=== PATIENT | female | born 1990 | race Caucasian/White ===

== ENCOUNTER 2017-10-27 10:31 | Day surgery (SDC) | payer BC ==
[2017-10-27 11:20] VITALS: BP 128/78; TEMP 98.8; BMI 29.0
[2017-10-27 11:53] LABS: Amnisure Test No Membranes Rupture (No Rupture)
[2017-10-27 11:54] LABS: Amnisure Internal Control QC ACCEPTABLE (ACCEPTABLE)
--- NOTE | 2017-10-27 13:05 | SS ---
DATE OF EVALUATION: 10/27/2017 REGULAR PHYSICIAN: Etienne Salcedo M.D. EVALUATING PHYSICIAN: Vishnu Fraga M.D. CHIEF COMPLAINT: Suspected ruptured membranes since 3:00 a.m. this morning, contractions. HISTORY OF PRESENT ILLNESS: Ms. Ravi Burt is a 26-year-old white G1, P0 with an estimated date of c onfinement of 10/26/2017 who presents complaining of a gush of fluid from the vagina which she noted at 3:00 a.m. Since that time, she states that she has been ruddy every 2-5 minutes. Her [facility] care has been with Dr. Salcedo, it has been uncomplicated. She is group B Strep negative. PAST MEDICAL HISTORY: None. PAST SURGICAL HISTORY: Broken arms x2. MEDICATIONS: vitamins. ALLERGIES: No known allergies. SOCIAL HISTORY: She denies tobacco, alcohol, or drug use. FAMILY HISTORY: Unremarkable. PHYSICAL EXAMINATION: VITAL SIGNS: Stable and she is afebrile. GENERAL: She is well-appearing. She is not uncomfortable. ABDOMEN: Soft, nontender and gravid. PELVIC: Via the labor nurse shows the cervix to be 2 cm dilated, 95% effaced with the vertex at the -2 position. Sterile speculum exam by wi shows no pooling of fluid in the vagina with coughing and s training. AmniSure testing returns negative. heart rate tracing is reassuring with good beat to beat variability. Irregular contractions are seen. ASSESSMENT: 1. 40 and 1/7 week intrauterine . 2. No evidence of rupture of membranes at this time. 3. Possible early labor. PLAN: The patient desires low intervention at this time and will be allowed to go home, rest and obs erve for contractions. She is told to return if she notices vaginal bleeding, more leakage of fluid or more regular contractions. She and her voiced understanding of these discharge instructio ns.
== END 2017-10-27 12:25 | disposition home or self-care (01) ==
LOC: L&D/OP 10:31
PROVIDERS: ATTEND Obstetrics & Gynecology
DX: O47.1 False labor at or after 37 completed weeks of gestation (principal); Z3A.40 40 weeks gestation of pregnancy
CPT/HCPCS: 84112; 99282

== ENCOUNTER 2017-10-27 20:37 | Inpatient (IN) | payer BC ==
[2017-10-27 21:00] VITALS: BMI 29.0
[2017-10-27] MEDS ORDERED: Butorphanol Tartrate 1 MG/ML VIAL SLOW IVP PRN (21:26)
[2017-10-27] MEDS ORDERED: Ibuprofen 800 MG TAB PO PRN (21:26)
[2017-10-27] MEDS ORDERED: Ondansetron HCl/PF 4 MG/2 ML Vial IVP PRN (21:26)
[2017-10-27] MEDS ORDERED: Promethazine HCl 25 MG/ML VIAL IM PRN (21:26)
[2017-10-27] MEDS ORDERED: NS / Oxytocin 40 units/1000ml 1,000 ML IV PRN (21:26)
[2017-10-27] MEDS ORDERED: Methylergonovine 0.2 MG/ML VIAL IM PRN (21:26)
[2017-10-27] MEDS ORDERED: Carboprost 250 MCG/ML AMP IM PRN (21:26)
[2017-10-27] MEDS ORDERED: Diphenoxylate HCl/Atropine Tablet PO PRN ×2 (21:26)
[2017-10-27] MEDS ORDERED: Acetaminophen 500 MG TAB PO PRN (21:26)
[2017-10-27] MEDS ORDERED: HYDROcodone/Acetaminophen 5/325 mg Tablet PO PRN ×2 (21:26)
[2017-10-27] MEDS ORDERED: Lidocaine 1% (PF) 30 ML VIAL SC PRN (21:26)
[2017-10-27] MEDS ORDERED: Misoprostol 200 MCG TAB PR PRN (21:26)
--- NOTE | 2017-10-27 21:30 | PDOC.LDHP ---
Labor and Delivery H&P Chief complaint: contractions HPI: 26 y/o G1 at 40w1d, patient of Dr. Salcedo, presents with continued contractions. Was seen earlier today and noted to be 2/50/-2 with a negative SROM exam. Denies VB or decreased FM. Would like low intervention. ROS neg for HEENT, cv, pulm, gi, gu, neuro, psych, skin, musculoskeletal, or constitutional symptoms other than mentioned above. OB History Details: First Current complications: none Past Medical History: None Current medications: pre- vitamins Previous surgical history: other (broken arms x 2) Allergies/Adverse Reactions: Allergies Allergy/AdvReac Type Severity Reaction Status Date / Time No Known Allergies Allergy Verified 10/27/17 20:57 Social history: none - Physical Exam Vital signs reviewed and normal: yes General: NAD, breathing through contractions Lungs: nonlabored breathing Abdomen: gravid Extremeties: no edema FHT: category 1 (135, mod variability, + accels, no decels) [place] contractions every: 2-4 mins - Vaginal Exam cm dilated: 4 Effacement: 75% Station: -2 - OB Labs Blood type: A RH: positive Antibody Screen: negative HIV: negative RPR: negative HEPSAg: negative 1 hour GCT: negative GBS: negative Rubella: immune - Assessment L&D Assessment: term patient in labor - Plan Plan: admit to L&D, labor augmentation if indicated, informed consent obtained, anesthesia consult for pain management
[2017-10-27 22:40] LABS: Hemoglobin 11.5 g/dL (12.0-16.0); Mean Corpuscular HGB CONC 34.6 g/dL (32.0-36.0); Mean Corpuscular Hemoglobin 31.3 pg (27.0-31.0); Mean Corpuscular Volume 90.5 fL (78.0-98.0); Mean Platelet Volume 8.4 fL (7.4-10.4); Platelet Count 220 thou/uL (130-400); RBC Distribution Width 12.3 % (11.5-14.5); Red Blood Cell (RBC) Count 3.69 mill/uL (4.20-5.40)
[2017-10-27 23:16] LABS: Syphilis Antibody Nonreactive (Nonreactive); Syphilis Antibody Index 0.02 S/CO (<1.00 Non-Reactive)
[2017-10-27 23:22] LABS: Hep B Surf Ag Non-Reactive S/CO (NonReactive)
[2017-10-28] MEDS ORDERED: Bupivacaine 0.25% HCL 30 ML VIAL ONE (10:00)
[2017-10-28] MEDS ORDERED: Bupivacaine HCl 0.5%/Epinephrine 1:200,000/PF 30 ml Vial ONE (10:00)
[2017-10-28] MEDS ORDERED: Ketorolac Tromethamine 30 MG/ML VIAL ONE ×2 (15:06→22:30)
[2017-10-28] MEDS ORDERED: Dexamethasone 20 MG/5 ML VIAL ONE (15:06)
[2017-10-28] MEDS ORDERED: Ondansetron HCl/PF 4 MG/2 ML Vial ONE ×2 (15:06→22:30)
[2017-10-28] MEDS ORDERED: DISCONTINUE ALL PREVIOUS NARCOTICS FS SCH (17:15)
[2017-10-28] MEDS ORDERED: Bupivacaine 0.5% 20 ML, fentaNYL Citrate/PF 400 MCG in Sodium Chloride 0.9% 72 ML EPIDURAL SCH (17:15)
[2017-10-28] MEDS ORDERED: Butorphanol Tartrate 1 MG/ML VIAL ONE (17:28)
[2017-10-28] MEDS: Lactated Ringer's 1,000 ML IV SCH ×3 (17:50→21:21)
[2017-10-28] MEDS ORDERED: ePHEDrine/0.9% NaCl/PF SYRINGE 50 mg/10 ml SLOW IVP PRN (18:27)
[2017-10-28] MEDS ORDERED: Naloxone HCl 0.4 mg/ml Vial IVP PRN ×4 (18:27→22:21)
[2017-10-28] MEDS ORDERED: Promethazine HCl 25 MG/ML VIAL IM PRN ×2 (18:27→22:21)
[2017-10-28] MEDS ORDERED: Ondansetron HCl/PF 4 MG/2 ML Vial IVP PRN ×3 (18:27→22:21)
[2017-10-28] MEDS ORDERED: Lactated Ringer's 500 ML IV PRN (18:27)
[2017-10-28] MEDS ORDERED: Acetaminophen 325 MG TAB PO PRN (18:27)
[2017-10-28] MEDS ORDERED: diphenhydrAMINE 50 MG/ML VIAL IVP PRN ×2 (18:27→22:21)
[2017-10-28] MEDS ORDERED: Eucerin (Mineral Oil/Petrolatum,White) 30 gm Jar TOP PRN (18:27)
[2017-10-28] MEDS ORDERED: fentaNYL Citrate/PF 400 MCG, Bupivacaine 0.5% 20 ML in Sodium Chloride 0.9% 72 ML EPIDURAL SCH (18:30)
[2017-10-28] MEDS ORDERED: Communication Order-Pharmacy FS SCH ×2 (18:30→22:30)
[2017-10-28] MEDS ORDERED: CEFAZOLIN/Water 2 GM/20 ML SYRINGE ONE (20:42)
--- NOTE | 2017-10-28 20:43 | PDOC.EVN ---
Event Note - Event Note Event Note: Epidural placed 2 hours ago. Pt. comfortable. SVE remains 9 cm, edematous cervix anteriorly, vtx. with caput. FHTs are stable, no decels. UCs q 2-3 min. A/P; Active phase arrest. D/w Dr. Salcedo. Will proceed with 1* C/S.
[2017-10-28] MEDS ORDERED: Bicitra 30 ML UDCUP PO SCH (20:45)
[2017-10-28] MEDS ORDERED: CEFAZOLIN/Water 2 GM/20 ML SYRINGE SLOW IVP SCH (20:45)
[2017-10-28] MEDS ORDERED: Azithromycin 500 MG in Sodium Chloride 0.9% 250 ML 250 ML IVPB SCH (21:15)
--- NOTE | 2017-10-28 21:26 | PDOC.LDPN ---
Labor & Delivery Progress Note - Subjective Subjective: comfortable - Objective Vital signs reviewed and normal: yes General: NAD, resting Uterine fundus: non tender Dilation: 9 Effacement: 90% Station: 1+ FHT: category 1 [place] contractions every: 3-4 - Assessment (1) Failure of cervical dilation Code(s): O62.0 - PRIMARY INADEQUATE CONTRACTIONS Current Visit: Yes Status: Acute Plan: other (CS called @`2034, Dr mitchell notified of need for primary unscheduled cs for failure to progress at [address] Mitchell on unit at 2114, awaiting other or coming down for dry starch supervisor staffing for case currently at 2124. Category 1 fhr tracing. )
[2017-10-28] MEDS ORDERED: EPINEPHrine 1 MG/ML AMP ONE (21:50)
[2017-10-28] MEDS ORDERED: ePHEDrine/0.9% NaCl/PF SYRINGE 50 mg/10 ml ONE (21:50)
[2017-10-28] MEDS ORDERED: Oxytocin 10 UNITS/ML VIAL ONE (21:50)
[2017-10-28] MEDS ORDERED: Morphine PF 1 MG/ML SYR ONE (22:12)
[2017-10-28] MEDS ORDERED: CEFAZOLIN 1 GM in Sodium Chloride 0.9% 100 ML IVPB SCH (22:15)
[2017-10-28] MEDS ORDERED: Hydrocerin (Eucerin) Cream 120 gm Jar TOP PRN (22:21)
[2017-10-28] MEDS ORDERED: Meperidine HCl/PF 25 MG/ML VIAL SLOW IVP PRN (22:21)
[2017-10-28] MEDS ORDERED: HYDROmorphone 2 MG/ML VIAL SLOW IVP PRN (22:21)
[2017-10-28] MEDS ORDERED: Ketorolac Tromethamine 30 MG/ML VIAL IVP PRN (22:21)
[2017-10-28] MEDS ORDERED: Promethazine HCl 25 MG SUPP PR PRN (22:21)
[2017-10-28] MEDS ORDERED: Naloxone HCl 0.4 mg/ml Vial IV PRN (22:21)
[2017-10-28] MEDS ORDERED: Dexamethasone 4 mg/ml Vial ONE (22:30)
[2017-10-28] MEDS ORDERED: Ketorolac Tromethamine 30 MG/ML VIAL IVP SCH (22:30)
--- NOTE | 2017-10-29 01:12 | PDOC.EVN ---
Event Note - Event Note Event Note: POD#1 Resting comfortably. No c/o. VSS AF. Dressing dry. Floey with clear urine. Plan; Routine post op care.
--- NOTE | 2017-10-29 01:29 | OP ---
DATE OF PROCEDURE: 10/28/2017 PREOPERATIVE DIAGNOSES: Failure to progress at 9 cm post-term, spontaneous onset of labor. POSTOPERATIVE DIAGNOSES: Failure to progress at 9 cm post-term, spontaneous onset of labor. PROCEDURE: Primary low-transverse section without extension. SURGEON: Eliud Salcedo MD for [facility]. SENIOR BEHAVIORAL SCIENTIST: Vishnu Fraga MD for [facility]. ANESTHESIOLOGIST: Tan Mitchell MD ANESTHESIA: Epidural. ESTIMATED BLOOD LOSS: QBL pending, but blood loss did not seem excessive for section. MEDICATIONS: Ancef 3 grams and Zithromax 500 preoperatively. DEEP VENOUS THROMBOSIS PROPHYLAXIS: SCDs. DRAINS: David to gravity. OPERATIVE FINDINGS: 1. Vigorous female , left occiput transverse presentation with thin meconium fluid. No nuchal cord. To nursery. 8 and 9 Apgars. Weight pending. 2. Normal-appearing uterus, tubes, and ovaries bilaterally. 3. Hemostasis. Clear urine. Counts correct at the end of procedure. DISPOSITION: To recovery room in good condition. DESCRIPTION OF PROCEDURE: After obtaining proper consent, the patient was taken to the operating rosa m, where epidural had been dosed to appropriate level. The patient was prepped and draped in the usu al manner with SCDs and lower extremity warmer on. Pfannenstiel incision was made and carried down t o the fascia. The midline was incised sharply superior and laterally with curved Esquivel scissors. Rec tus was dissected off sharply superiorly and inferiorly, divided in the midline. Peritoneum entered bluntly, taking care to avoid trauma to underlying viscera. Nathan O retractor placed inside. Vesic outerine peritoneal reflection noted as well as the lower uterine segment. A low-transverse hysterot milly was made at this level and extended superior and laterally. 's head was elevated through t he hysterotomy. The rest of the delivered. Cord clamped, cut, and handed off to [facility] in attendance. Usual cord blood samples were obtained without difficulty. Placenta delivered manu ally. Uterus left in situ, noted to be without extension, closed using a running locking #1 Monocryl suture x2. Gutters were irrigated out bilaterally and re-inspection of the hysterotomy revealed to be dry. The Nathan O retractor was removed. Counts were correct. Rectus was inspected and noted to be dry. Fascia was reapproximated using a running continuous 0 PDS suture. Subcutaneous tissue irr igated and rendered hemostatic with Bovie cautery, reapproximated with 2-0 plain gut and skin malia . The patient was taken to recovery room in good condition.
[2017-10-29] MEDS ORDERED: Meperidine HCl/PF 25 MG/ML VIAL IM PRN ×2 (01:35→13:52)
[2017-10-29] MEDS ORDERED: Zolpidem Tartrate 5 MG TAB PO PRN ×2 (01:35→13:52)
[2017-10-29] MEDS ORDERED: Lanolin Ointment 7 GM TUBE TOP PRN (01:35)
[2017-10-29] MEDS ORDERED: Ondansetron HCl/PF 4 MG/2 ML Vial IVP PRN ×2 (01:35→02:07)
[2017-10-29] MEDS ORDERED: diphenhydrAMINE 25 MG CAP PO PRN (01:35)
[2017-10-29] MEDS ORDERED: HYDROcodone/Acetaminophen 5/325 mg Tablet PO PRN ×2 (01:35)
[2017-10-29] MEDS ORDERED: Acetaminophen 325 MG TAB PO PRN (01:35)
[2017-10-29] MEDS ORDERED: Promethazine HCl 25 MG/ML VIAL IM PRN ×2 (01:35→02:07)
[2017-10-29] MEDS ORDERED: Lactated Ringer's 1,000 ML IV SCH (01:45)
[2017-10-29] MEDS ORDERED: NS / Oxytocin 40 units/1000ml 1,000 ML IV SCH (01:45)
[2017-10-29] MEDS ORDERED: Measles/Mumps/Rubella 10 MCG/0.5 ML VIAL SC ONE (02:00)
[2017-10-29] MEDS ORDERED: Adacel (T-DAP) 0.5 ML VIAL IM ONE (02:00)
[2017-10-29] MEDS ORDERED: Promethazine HCl 25 MG SUPP PR PRN (02:07)
[2017-10-29] MEDS ORDERED: Naloxone HCl 0.4 mg/ml Vial IV PRN ×3 (02:07)
[2017-10-29] MEDS ORDERED: NO PO,IM,IV OR SC NARCOTICS FOR 12HR EXCEPT BY ANESTHESIA PO SCH (02:07)
[2017-10-29] MEDS ORDERED: Ketorolac Tromethamine 30 MG/ML VIAL IVP PRN (02:07)
[2017-10-29] MEDS ORDERED: diphenhydrAMINE 50 MG/ML VIAL IVP PRN (02:07)
[2017-10-29] MEDS ORDERED: Hydrocerin (Eucerin) Cream 120 gm Jar TOP PRN (02:07)
[2017-10-29] MEDS: Lactated Ringer's 1,000 ML IV SCH (03:34)
[2017-10-29 05:37] LABS: Hemoglobin 9.9 g/dL (12.0-16.0); Mean Corpuscular HGB CONC 34.1 g/dL (32.0-36.0); Mean Corpuscular Hemoglobin 31.5 pg (27.0-31.0); Mean Corpuscular Volume 92.6 fL (78.0-98.0); Mean Platelet Volume 8.8 fL (7.4-10.4); Platelet Count 187 thou/uL (130-400); RBC Distribution Width 12.7 % (11.5-14.5); Red Blood Cell (RBC) Count 3.13 mill/uL (4.20-5.40); White Blood Cell (WBC) Count 15.1 thou/uL (4.8-10.8)
[2017-10-29] MEDS ORDERED: Ibuprofen 800 MG TAB PO SCH (06:00)
[2017-10-29] MEDS: Prenatal Vitamin 1 TAB PO SCH (09:39)
[2017-10-29] MEDS: Docusate Calcium (SURFAK) 240 MG CAP PO SCH ×2 (09:39→21:21)
[2017-10-29] MEDS: Simethicone Chewable 80 MG TAB PO PRN ×3 (09:39→21:22)
[2017-10-29] MEDS: HYDROcodone/Acetaminophen 5/325 mg Tablet PO PRN ×3 (09:40→21:22)
[2017-10-29] MEDS: Ibuprofen 800 MG TAB PO SCH ×2 (14:12→21:22)
--- NOTE | 2017-10-30 01:14 | PDOC.PP ---
Post Progress Note Post Day #: POD2 Subjective: feels well but states her abdomen is "sore"..no acute distress though PO intake tolerated: yes Flatus: yes Ambulation: yes Vital Signs (12 hours) Temp Pulse Resp BP BP 10/29/17 23:56 98.6 F 94 16 125/71 10/29/17 20:00 98.6 F 91 16 109/65 10/29/17 17:13 97.9 F 77 20 10/29/17 16:54 97.9 F 77 20 117/63 Weight Weight 159 lb - Physical Examination General: NAD Cardiovascular: no m/r/g Respiratory: clear to auscultation bilaterally Abdominal: + bowel sounds, lochia, no distention Extremities: negative homans (B) Skin: CS incision dry & intact (malia in place-pfannenstiel) Neurological: no gross focal deficits Psychiatric: A&Ox3, normal affect Result Diagrams: 10/29/17 04:58 Additional Labs: Post Labs Blood Type A POSITIVE 10/27/17 22:16 Hep Bs Antigen Non-Reactive S/CO (NonReactive) 10/27/17 22:16 (1) delivery delivered Code(s): O82 - ENCOUNTER FOR DELIVERY WITHOUT INDICATION Status: Acute - Assessment/Plan POD 2 today. Desires to stay until POD3. As patient labored and then had CS, ok for continued in-house obs for temp checks. Doing well so far. No evidence metritis or ileus. Incision checked by me.
[2017-10-30] MEDS: Ibuprofen 800 MG TAB PO SCH ×3 (05:41→21:29)
[2017-10-30] MEDS: HYDROcodone/Acetaminophen 5/325 mg Tablet PO PRN ×5 (06:02→21:30)
[2017-10-30] MEDS: Prenatal Vitamin 1 TAB PO SCH (09:14)
[2017-10-30] MEDS: Docusate Calcium (SURFAK) 240 MG CAP PO SCH ×2 (09:14→21:29)
[2017-10-30] MEDS: Simethicone Chewable 80 MG TAB PO PRN (21:29)
[2017-10-31] MEDS: HYDROcodone/Acetaminophen 5/325 mg Tablet PO PRN ×2 (03:36→07:34)
[2017-10-31] MEDS: Ibuprofen 800 MG TAB PO SCH (06:00)
[2017-10-31 07:40] VITALS: BP 115/71; TEMP 97.8
[2017-10-31] MEDS: Docusate Calcium (SURFAK) 240 MG CAP PO SCH (08:53)
[2017-10-31] MEDS: Prenatal Vitamin 1 TAB PO SCH (08:53)
--- NOTE | 2017-10-31 09:29 | PDOC.PP ---
Post Progress Note Post Day #: 1 PO intake tolerated: yes Flatus: yes Ambulation: yes Vital Signs (12 hours) Temp Pulse Resp BP 10/31/17 07:40 97.8 F 68 20 10/31/17 07:39 97.8 F 68 20 115/71 Weight Weight 159 lb - Physical Examination General: NAD Cardiovascular: no m/r/g, RRR Respiratory: clear to auscultation bilaterally Abdominal: + bowel sounds, lochia, no distention Extremities: negative homans (B) Skin: CS incision dry & intact, no rash Neurological: no gross focal deficits Psychiatric: normal affect Result Diagrams: 10/29/17 04:58 Additional Labs: Post Labs Blood Type A POSITIVE 10/27/17 22:16 Hep Bs Antigen Non-Reactive S/CO (NonReactive) 10/27/17 22:16 (1) Failure of cervical dilation Code(s): O62.0 - PRIMARY INADEQUATE CONTRACTIONS Status: Acute - Assessment/Plan mary nascimento
== END 2017-10-31 10:20 | disposition home or self-care (01) | DRG 766 ==
LOC: L&D/OP 20:37 → L&D 23:20 → 3SW 10-29 01:00
PROVIDERS: ADMIT Obstetrics & Gynecology; ATTEND Obstetrics & Gynecology
PROC: 10D00Z1 Extraction of Products of Conception, Low, Open Approach (ICD-10-PCS; principal; 2017-10-28)
DX: O62.0 Primary inadequate contractions (principal); O48.0 Post-term pregnancy; Z37.0 Single live birth; Z3A.40 40 weeks gestation of pregnancy; O77.0 Labor and delivery complicated by meconium in amniotic fluid
CPT/HCPCS: 36415; 51702; 84112; 85027; 86780; 86850; 86900; 86901; 87340; 99285; J0171; J0456; J0595; J0670; J0690; J1100; J1885; J2001; J2274; J2405; J2590; J3010; J3490; J7050; S0020